=== PATIENT | female | born 1975 | race Caucasian/White ===

== ENCOUNTER 2021-11-27 20:10 | Emergency (ER) | payer BC ==
[~2021-11-27] VITALS: Ht 152.4 cm; Wt 66.3 kg
[2021-11-27 21:00] VITALS: BP 109/73
== END 2021-11-27 22:00 | disposition left against medical advice (07) ==
LOC: ER 20:10
DX: Z53.21 Procedure and treatment not carried out due to patient leaving prior to being seen by health care provider (principal)